=== PATIENT | female | born 1975 | race Caucasian/White ===

== ENCOUNTER 2017-03-26 05:33 | Emergency (ER) | payer OTHER ==
[2017-03-26 05:39] VITALS: O2SAT 98
[2017-03-26] MEDS ORDERED: DEXAMETHASONE 10 MG/ML VIAL IVP ONE (06:01)
[2017-03-26] MEDS ORDERED: NS 1,000 ML IV ONE (06:01)
[2017-03-26] MEDS ORDERED: KETOROLAC 15 MG/1 ML SDV IVP ONE (06:01)
[2017-03-26] MEDS ORDERED: HALOPERIDOL LACT 5 MG/ML INJ IVP ONE (06:01)
--- NOTE | 2017-03-26 06:03 | EDPHY ---
H & P Stated Complaint: migraine with facial numbness - Personal History LMP (Females 10-55): 8-14 Days Ago Current Tetanus/Diphtheria Vaccine: Yes Current Tetanus Diphtheria and Acellular Pertussis (TDAP): Yes - Medical/Surgical History Hx Asthma: No Hx Chronic Respiratory Disease: No Hx Diabetes: No Hx Cardiac Disease: No Hx Renal Disease: No Hx Cirrhosis: No Hx Alcoholism: No Hx HIV/AIDS: No Hx Splenectomy or Spleen Trauma: No Other PMH: 4 knee surgeries, broken pelvis, migraines - Social History Smoking Status: Never smoked Time Seen by Provider: 03/26/17 05:54 HPI/ROS: Chief Complaint: Migraine headache HPI: 42-year-old woman past medical history migraine headaches presenting with headache over the last couple days. She has also developed some right-sided facial numbness which is unusual for her but she has had similar in the past. She saw her neurologist, Dr. Turner, yesterday who ordered an MRI. She was unable to get the MRI performed due to a backlog of studies. Patient states this morning the pain is worse in the numbness spread across her face. Some nausea no vomiting. No vision or hearing changes. No chest pain or shortness of breath. No recent illness. ROS: 10 point Review of Systems is negative except as noted in the HPI. PMH: Migraine headaches, pituitary adenoma Social History: No smoking Family History: non-contributory Physical Exam: Gen: Awake, Alert, No Distress HEENT: Nose: no rhinorrhea Eyes: PERRLA, EOMI Mouth: Moist mucosa Neck: Supple, no JVD Chest: nontender, lungs clear to auscultation Heart: S1, S2 normal, no murmur Abd: Soft, non-tender, no guarding Back: no CVA tenderness, no midline tenderness Ext: no edema, non-tender Skin: no rash Neuro: She has decreased sensation to the right side of her face with paresthesia, Strength 5/5 in bilateral upper and lower extremities, normal finger-nose, (Zhou Tam) Constitutional: Initial Vital Signs Temperature (C) 37.0 C 03/26/17 05:35 Heart Rate 89 03/26/17 05:35 Respiratory Rate 16 03/26/17 05:35 Blood Pressure 131/83 H 03/26/17 05:35 O2 Sat (%) 98 03/26/17 05:35 O2 Delivery Mode Room Air Allergies/Adverse Reactions: morphine Allergy (Intermediate, Verified 03/26/17 05:38) Rash Sulfa (Sulfonamide Antibiotics) Allergy (Verified 03/26/17 05:38) Rash Home Medications: Medication Instructions Recorded Albuterol [Proventil] 2 puffs IH Q4-6PRN PRN #1 aerosol 05/19/11 Bcp 05/19/11 Prednisone 1 dose PO DAILY #0 tablet 05/19/11 Lunesta 03/26/17 Medical Decision Making ED Course/Re-evaluation: 42-year-old woman with a history of atypical migraines but also pituitary adenoma presenting with worsening headache and neurologic symptoms. She was seen by neurology: Says an MRI performed but she was unable to get 1 yesterday. Will give her a migraine cocktail here and order MRI. Patient signed out to Dr. Montejo pending MRI results (Zhou Tam) 7:00 a.m.-I assumed care of this patient at shift change. She is currently feeling much better. The throbbing sensation on the left side of her head has nearly resolved. She continues to have right-sided facial paresthesias. MRI results are pending. At this point, she would like to go home. I will call with her MRI results later this morning. Ativan 1 mg orally given for her to take when she gets home. (Latosha Montejo) Differential Diagnosis: Headache including but not limited to subarachnoid hemorrhage, migraine headache , tension headache and infectious causes such as meningitis, pharyngitis and sinusitis. (Latosha Montejo) - Data Points Laboratory Results: Laboratory Results 03/26/17 06:00 03/26/17 06:00 03/26/17 03/26/17 03/26/17 06:00 06:00 06:00 WBC 9.15 10^3/uL 10^3/uL (3.80-9.50) RBC 4.83 10^6/uL 10^6/uL (4.18-5.33) Hgb 15.6 g/dL g/dL (12.6-16.3) Hct 44.0 % % (38.0-47.0) MCV 91.1 fL fL (81.5-99.8) MCH 32.3 pg pg (27.9-34.1) MCHC 35.5 g/dL g/dL (32.4-36.7) RDW 11.9 % % (11.5-15.2) Plt Count 300 10^3/uL 10^3/uL (150-400) MPV 9.6 fL fL (8.7-11.7) Neut % (Auto) 83.1 % H % (39.3-74.2) Lymph % (Auto) 14.6 % L % (15.0-45.0) [place] % (Auto) 2.0 % L % (4.5-13.0) Eos % (Auto) 0.0 % L % (0.6-7.6) Baso % (Auto) 0.1 % L % (0.3-1.7) Nucleat RBC Rel Count 0.0 % % (0.0-0.2) Absolute Neuts (auto) 7.60 10^3/uL H 10^3/uL (1.70-6.50) Absolute Lymphs (auto) 1.34 10^3/uL 10^3/uL (1.00-3.00) Absolute Monos (auto) 0.18 10^3/uL L 10^3/uL (0.30-0.80) Absolute Eos (auto) 0.00 10^3/uL L 10^3/uL (0.03-0.40) Absolute Basos (auto) 0.01 10^3/uL L 10^3/uL (0.02-0.10) Absolute Nucleated RBC 0.00 10^3/uL 10^3/uL (0-0.01) Immature Gran % 0.2 % % (0.0-1.1) Immature Gran # 0.02 10^3/uL 10^3/uL (0.00-0.10) Sodium 139 mEq/L mEq/L (134-144) Potassium 4.3 mEq/L mEq/L (3.5-5.2) Chloride 104 mEq/L mEq/L (97-110) Carbon Dioxide 20 mEq/l L mEq/l (22-31) Anion Gap 15 mEq/L mEq/L (8-16) BUN 18 mg/dL mg/dL (7-23) Creatinine 0.8 mg/dL mg/dL (0.6-1.0) Estimated GFR > 60 Glucose 155 mg/dL H mg/dL (70-100) Hemoglobin A1c Pending Estim Average Glucose Pending Calcium 10.0 mg/dL mg/dL (8.5-10.4) Medications Given: Discontinued Medications Dexamethasone (Decadron Injection) 10 mg IVP EDNOW ONE Stop: 03/26/17 06:02 Last Admin: 03/26/17 06:15 Dose: 10 mg Diphenhydramine HCl (Benadryl Injection) 25 mg IVP EDNOW ONE Stop: 03/26/17 06:02 Last Admin: 03/26/17 06:13 Dose: 25 mg Haloperidol Lactate (Haldol Injection) 2.5 mg IVP EDNOW ONE Stop: 03/26/17 06:02 Last Admin: 03/26/17 06:15 Dose: 2.5 mg Sodium Chloride (Ns) 1,000 mls @ 0 mls/hr IV ONCE ONE; Wide Open PRN Reason: Protocol Stop: 03/26/17 06:02 Last Admin: 03/26/17 06:13 Dose: 1,000 mls Ketorolac Tromethamine (Toradol) 15 mg IVP EDNOW ONE Stop: 03/26/17 06:02 Last Admin: 03/26/17 06:13 Dose: 15 mg Lorazepam (Ativan) 1 mg PO EDNOW ONE Stop: 03/26/17 07:53 Last Admin: 03/26/17 07:55 Dose: 1 mg Departure - Departure Disposition: Home, Routine, Self-Care Clinical Impression: Migraine headache Qualifiers: Migraine type: without aura Status migrainosus presence: with status migrainosus Intractability: not intractable Qualified Code(s): G43.001 - Migraine without aura, not intractable, with status migrainosus Condition: Good Instructions: Migraine Headache (ED) Additional Instructions: Your blood sugar is 155 today. Have this rechecked by your primary care physician. Referrals: Qian Munguia MD [Primary Care Provider] - As per Instructions Zhou Turner DO [Medical Doctor] - 1 day, if not improved
[2017-03-26 06:42] LABS: % IMMATURE GRANULYOCYTES 0.2 % (0.0-1.1); ABSOLUTE IMMATURE GRANULOCYTES 0.02 10^3/uL (0.00-0.10); ADD DIFF? NO; ADD MORPH? NO; ADD SCAN? NO; ATYPICAL LYMPHOCYTE FLAG 0 (0-99); FRAGMENT RBC FLAG 0 (0-99); HEMOGLOBIN 15.6 g/dL (12.6-16.3); LEFT SHIFT FLG 0 (0-99); LIPEMIA HEMOLYSIS FLAG 90 (0-99); MEAN CELL HEMOGLOBIN 32.3 pg (27.9-34.1); MEAN CELL HEMOGLOBIN CONCENTR. 35.5 g/dL (32.4-36.7); MEAN CELL VOLUME 91.1 fL (81.5-99.8); MEAN PLATELET VOLUME 9.6 fL (8.7-11.7); PLATELET CLUMPS FLAG 0 (0-99); PLATELET COUNT 300 10^3/uL (150-400); RED BLOOD CELL COUNT 4.83 10^6/uL (4.18-5.33); RED CELL DISTRIBUTION WIDTH 11.9 % (11.5-15.2)
[2017-03-26 06:47] LABS: ANION GAP 15 mEq/L (8-16); CARBON DIOXIDE 20 mEq/l (22-31); CHLORIDE 104 mEq/L (97-110); CREATININE 0.8 mg/dL (0.6-1.0); GLOMERULAR FILTRATION RATE > 60; GLUCOSE 155 mg/dL (70-100); POTASSIUM 4.3 mEq/L (3.5-5.2); SODIUM 139 mEq/L (134-144)
[2017-03-26] MEDS ORDERED: GADOBUTROL 10 ML VIAL IVP ONE (07:08)
[2017-03-26] MEDS ORDERED: LORazepam 1 MG TAB PO ONE (07:52)
[2017-03-26 08:00] VITALS: BP 128/67; PULSE 75; RESP 96; TEMP 98.2
[2017-03-26 10:14] LABS: HEMOGLOBIN A1C 5.5 % (4.0-6.0)
== END 2017-03-26 08:00 | disposition home or self-care (01) ==
DX: G43.001 Migraine without aura, not intractable, with status migrainosus (principal); E86.9 Volume depletion, unspecified
CPT/HCPCS: 96374; A9585; J1100; J1200; J1885

== ENCOUNTER → 2017-05-02 | Outpatient (CLI) | payer OTHER | LOC: FIMAGING 08:41 | PROVIDERS: ATTEND Internal Medicine | DX: Z12.31 Encounter for screening mammogram for malignant neoplasm of breast (principal) | CPT/HCPCS: G0202 ==

== ENCOUNTER → 2017-06-19 | Outpatient (CLI) | payer OTHER | LOC: FIMAGING 08:53 | PROVIDERS: ATTEND Internal Medicine | DX: Z13.820 Encounter for screening for osteoporosis (principal); M85.89 Other specified disorders of bone density and structure, multiple sites ==

== ENCOUNTER → 2018-05-05 | Outpatient (CLI) | payer OTHER | LOC: FIMAGING 14:14 | PROVIDERS: ATTEND Internal Medicine | DX: Z12.31 Encounter for screening mammogram for malignant neoplasm of breast (principal) ==

== ENCOUNTER → 2018-08-06 | Outpatient (CLI) | payer OTHER | LOC: FIMAGING 19:34 | PROVIDERS: ATTEND Orthopaedic Surgery | DX: S82.832A Other fracture of upper and lower end of left fibula, initial encounter for closed fracture (principal); M22.42 Chondromalacia patellae, left knee ==

== ENCOUNTER 2018-08-18 10:41 | Day surgery (SDC) | payer OTHER ==
[2018-08-18] MEDS ORDERED: LR 1,000 ML IV ONE (10:57)
[2018-08-18] MEDS ORDERED: ceFAZolin 2 GM/DEXTROSE 100 ML IV ONE (11:10)
--- NOTE | 2018-08-18 11:36 | PDANEPAE ---
ANE History of Present Illness painful hardware ANE Past Medical History - Cardiovascular History Hx Hypertension: No Hx Arrhythmias: No Hx Chest Pain: No Hx Coronary Artery / Peripheral Vascular Disease: No Hx CHF / Valvular Disease: No Hx Palpitations: No - Pulmonary History Hx COPD: No Hx Asthma/Reactive Airway Disease: Yes Hx Recent Upper Respiratory Infection: No Hx Oxygen in Use at Home: No Hx Sleep Apnea: No Sleep Apnea Screening Result - Last Documented: Negative Pulmonary History Comment: albuterol inhaler prn - Neurologic History Hx Cerebrovascular Accident: No Hx Seizures: No Hx Dementia: No Neurologic History Comment: questionable pituitary tumor in past. migraines - Endocrine History Hx Diabetes: No Hypothyroid: Yes Hyperthyroid: No Obesity: no - Renal History Hx Renal Disorders: No - Liver History Hx Hepatic Disorders: No - Neurological & Psychiatric Hx Hx Neurological and Psychiatric Disorders: Yes Neurological / Psychiatric History Comment: anxiety - Cancer History Hx Cancer: No - Congenital Disorder History Hx Congenital Disorders: No - GI History Hx Gastrointestinal Disorders: Yes Gastrointestinal History Comment: constipation - Other Health History Other Health History: wears contacts - Chronic Pain History Chronic Pain: Yes - Surgical History Prior Surgeries: knee surgery x4. abd exp lap ANE Review of Systems Review of systems is: negative Review of Systems: - Exercise capacity METS (RN): 4 METS ANE Patient History - Allergies Allergies/Adverse Reactions: morphine Allergy (Verified 08/14/18 17:23) localized hive reaction at iv site shellfish derived Allergy (Verified 08/18/18 11:29) Anaphylaxis Sulfa (Sulfonamide Antibiotics) Allergy (Verified 08/14/18 17:24) Rash - Home Medications Home medications: home medication list seen and reviewed Home Medications: Bcp 05/19/11 [Last Taken Unknown] Ativan PRN 08/14/18 [Last Taken Unknown] Herbals/Supplements -Info Only 08/14/18 [Last Taken 08/14/18] Synthroid 08/14/18 [Last Taken Unknown] Testosterone 08/14/18 [Last Taken Unknown] - NPO status NPO Status: no food or drink >8 hours - Anes Hx Anes Hx: no prior problems - Smoking Hx Smoking Status: Never smoked - Family Anes Hx Family Anes Hx: none Family Hx Anesthesia Complications: none ANE Labs/Vital Signs - Vital Signs Height: 157.48 cm Weight: 66.678 kg ANE Physical Exam - Airway Neck exam: FROM Mallampati Score: Class 2 Mouth exam: normal dental/mouth exam - Pulmonary Pulmonary: no respiratory distress, clear to auscultation - Cardiovascular Cardiovascular: regular rate and rhythym, no murmur, rub, or gallop - ASA Status ASA Status: II ANE Anesthesia Plan Anesthesia Plan: general endotracheal anesthesia, GA w LMA
[2018-08-18] MEDS ORDERED: MIDAZOLAM 2 MG/2 ML VIAL IVP ONE (11:57)
--- NOTE | 2018-08-18 12:03 | PDHPUP ---
History & Physical Update H&P update statement: This history and physical update is based on an assessment of the patient which was completed after admission or registration (within 24 hours), but prior to the surgery/procedure. H&P update: H&P reviewed & patient examined, no change in patient's condition since H&P completed
[2018-08-18] MEDS ORDERED: BUPIVACAINE 0.5% 30 ML SDV ONE (12:12)
[2018-08-18] MEDS ORDERED: PROPOFOL/EMULSION 500 MG/50 ML BOTTLE IV ONE (12:13)
[2018-08-18] MEDS ORDERED: fentaNYL 100 MCG/2 ML INJ ONE ×3 (12:13→13:38)
[2018-08-18] MEDS ORDERED: LIDOCAINE 2% 5 ML SDV ONE (12:14)
[2018-08-18] MEDS ORDERED: DEXAMETHASONE 4 MG/ML VIAL ONE (12:24)
[2018-08-18] MEDS ORDERED: ONDANSETRON 4 MG/2 ML VIAL ONE (12:25)
[2018-08-18] MEDS ORDERED: NALOXONE HCL 0.4 MG/ML INJ IVP PRN (12:35)
[2018-08-18] MEDS ORDERED: PROMETHAZINE HCL 25 MG/ML INJ IVP PRN (12:35)
--- NOTE | 2018-08-18 12:35 | POSTANESTH ---
Post Anesthetic Evaluation Cardiovascular Status: Normal, Stable Respiratory Status: Normal, Stable Level of Consciousness/Mental Status: Can Participate in Eval Pain Control: Adequate, Prn Tx Ordered Nausea/Vomiting Control: Adequate, Prn Tx Ordered Complications Possibly Related to Anesthesia: None Noted
[2018-08-18] MEDS: fentaNYL 100 MCG/2 ML INJ IVP PRN ×3 (13:01→13:40)
--- NOTE | 2018-08-18 13:17 | GOP ---
[f rep st] OPERATIVE REPORT DATE OF OPERATION: 08/18/2018 SURGEON: Sixto Paris MD SENIOR PROGRAM MANAGER: None. ANESTHESIA: General with supplemental 10 mL of 0.5% plain Marcaine. PREOPERATIVE DIAGNOSIS: Left tibia retained hardware, symptomatic painful hardware. POSTOPERATIVE DIAGNOSIS: Left tibia retained hardware, symptomatic painful hardware. PROCEDURE PERFORMED: Left knee hardware removal, screw out of the bone. FINDINGS: ESTIMATED BLOOD LOSS: 5 mL. INDICATIONS: This is a female who had had this old surgery and this painful hardware. She also sust ained a more recent knee trauma. During the recovery from this, she desired having the screw removal s, as this had bothered her for years and she had night pain. We discussed risks of the hardware rem oval only and this would help with the hardware pain, but not her other knee pain or associated injur y. She understood this. We discussed risks of nerve injury, continued pain, fracture, weakness of b one, blood clot, swelling, nerve injury, and she elected to proceed. Informed consent was obtained. All questions were answered. Marked preoperatively. DESCRIPTION OF PROCEDURE: She was taken to the operative suite, sterilely prepped and draped in usua l normal fashion. A time-out was performed, verifying site, side, location, and agreed upon by susan hui of the team. I made an incision over old incision, dissected through scar tissue. The screw annabel ana m with the screw road train driver. Curetted the hole, and then removed scar tissue. I irrigated this, close d with 2-0 Vicryl, 3-0 Quill, and Dermabond. She was taken to the PACU in stable condition. COMPLICATIONS: None. DRAINS: None. CONDITION: Stable. /[id number]/MODL
[2018-08-18] MEDS ORDERED: HYDROCODONE/APAP 5/325 TAB PO PRN (13:54)
[2018-08-18 14:35] VITALS: BP 114/76
== END 2018-08-18 14:47 | disposition home or self-care (01) ==
LOC: FSGY 10:41
PROVIDERS: ATTEND Orthopaedic Surgery
PROC: 0QPH04Z Removal of Internal Fixation Device from Left Tibia, Open Approach (ICD-10-PCS; principal; 2018-08-18 12:15)
DX: T84.84XA Pain due to internal orthopedic prosthetic devices, implants and grafts, initial encounter (principal); E03.9 Hypothyroidism, unspecified; J45.909 Unspecified asthma, uncomplicated; F41.9 Anxiety disorder, unspecified; K59.00 Constipation, unspecified
CPT/HCPCS: J0690; J1100; J2250; J2405; J2704; J3010

== ENCOUNTER → 2018-10-27 | Outpatient (CLI) | payer OTHER | LOC: BMCIMAGING 13:42 | PROVIDERS: ATTEND Internal Medicine | DX: J20.8 Acute bronchitis due to other specified organisms (principal) ==

== ENCOUNTER → 2018-11-23 | Outpatient (CLI) | payer OTHER | LOC: FIMAGING 19:53 ==